=== PATIENT | female | born 1995 | race African-American/Black ===

== ENCOUNTER 2024-07-06 00:22 | Emergency (ER) | payer SELFPAY ==
[~2024-07-06] VITALS: Ht 167.6 cm; Wt 70.0 kg
[2024-07-06 00:39] VITALS: BP 133/81; PULSE 79; RESP 18; TEMP 98.3; O2SAT 99
== END 2024-07-06 04:50 | disposition left against medical advice (07) ==
LOC: ER 00:22
DX: R51.9 Headache, unspecified (principal); Z53.21 Procedure and treatment not carried out due to patient leaving prior to being seen by health care provider